=== PATIENT | female | born 1960 | race Two or more races ===

== ENCOUNTER → 2024-08-18 08:51 | Outpatient (REF) | payer BC, SELFPAY | LOC: WDC 08:51 | PROVIDERS: ATTENDING PHYSICIAN Nurse Practitioner Family; FAMILY PHYSICIAN Physician Assistant Medical | DX: N63.14 Unspecified lump in the right breast, lower inner quadrant (principal) | CPT/HCPCS: 76642; 77062; 77066 ==

== ENCOUNTER → 2024-08-29 08:41 | Outpatient (REF) | payer BC, SELFPAY ==
--- NOTE | 2024-08-29 13:24 | OID.BR.INTR ---
[facility] - Initial
- -
Date of Contact: 08/29/24
Met with patient. Patient given written information on navigator service available at [facility]. Will follow up as needed per protocol.
== END ==
LOC: WDC 08:41
PROVIDERS: ATTENDING PHYSICIAN Nurse Practitioner Family; FAMILY PHYSICIAN Physician Assistant Medical
DX: N63.13 Unspecified lump in the right breast, lower outer quadrant (principal)
CPT/HCPCS: 88305; 19083; 88341; 88342; A4648

== ENCOUNTER → 2025-03-30 15:35 | Outpatient (REF) | payer BC, SELFPAY | LOC: REG 15:35 | PROVIDERS: ATTENDING PHYSICIAN Student in an Organized Health Care Education/Training Program; FAMILY PHYSICIAN Physician Assistant Medical | DX: M79.641 Pain in right hand (principal); M19.90 Unspecified osteoarthritis, unspecified site; M25.50 Pain in unspecified joint; M25.561 Pain in right knee; R76.89 Other specified abnormal immunological findings in serum | CPT/HCPCS: 73120 ==